=== PATIENT | male | born 1990 | race African-American/Black ===

== ENCOUNTER 2023-07-29 16:44 | Emergency (ER) | payer MEDICAID ==
[~2023-07-29] VITALS: Ht 175.3 cm; Wt 97.0 kg
[2023-07-29 16:53] VITALS: O2SAT 99
[2023-07-29] MEDS ORDERED: ASPIRIN 325MG EC TABLET PO ONE (17:30)
[2023-07-29 20:16] LABS: BASOPHILS % 0.7 % (0.0-2.0); EOSINOPHILS % 0.8 % (0.0-5.0); HEMATOCRIT. 39.3 % (42.0-52.0); HEMOGLOBIN. 13.1 g/dL (14.0-18.0); LYMPHOCYTES % 31.4 % (20.0-50.0); MEAN CORPUSCULAR HEMOGLOBIN 29.3 pg (28.0-32.0); MEAN CORPUSCULAR HGB CONC 33.3 g/dL (31.0-37.0); MEAN CORPUSCULAR VOLUME 88.1 fL (80.0-94.0); MEAN PLATELET VOLUME 7.6 fl (7.4-10.4); MONOCYTES % 10.9 % (2.0-8.0); NEUTROPHILS % 56.2 % (40.0-76.0); PLATELET 349 x1000/uL (130-400); RED BLOOD CELL COUNT 4.46 mill/uL (4.7-6.1); RED CELL DISTRIBUTION WIDTH 14.6 % (11.6-14.6); WHITE BLOOD COUNT 7.3 x1000/uL (4.5-11.0)
[2023-07-29 20:33] LABS: ALANINE AMINOTRANSFERASE 76 IU/L (10-49); ASPARTATE AMINOTRANSFERASE 114 IU/L (<34); BILIRUBIN TOTAL 0.6 mg/dL (0.1-1.0); CALCIUM 8.8 mg/dL (8.7-10.4); CARBON DIOXIDE 24 mEq/L (21-32); CHLORIDE 102 mEq/L (98-107); CREATININE 0.9 mg/dL (0.6-1.3); GLUCOSE 94 mg/dL (70-105); POTASSIUM 3.1 mEq/L (3.5-5.1); PROTEIN TOTAL 7.1 g/dL (6.0-8.3); SODIUM 138 mEq/L (136-145); TROPONIN I HIGH SENSITIVITY 29 ng/L (3.0-53); UREA NITROGEN BLOOD 11 mg/dL (9-23)
[2023-07-29] MEDS ORDERED: DIVALPROEX SODIUM 500MG DR TABLET PO ONE (21:00)
[2023-07-29] MEDS ORDERED: PROPRANOLOL HCL 10MG TABLET PO ONE (21:00)
[2023-07-29] MEDS ORDERED: OLANZAPINE 10MG TABLET PO SCH (21:00)
[2023-07-29] MEDS ORDERED: DIPHENHYDRAMINE 50MG CAPSULE PO ONE (21:00)
[2023-07-30 14:50] VITALS: BP 143/68; PULSE 88; RESP 16; TEMP 98.7
== END 2023-07-30 14:52 | disposition home or self-care (01) ==
LOC: ER 16:44
DX: R53.1 Weakness (principal); F19.90 Other psychoactive substance use, unspecified, uncomplicated; F20.9 Schizophrenia, unspecified; Z13.9 Encounter for screening, unspecified
CPT/HCPCS: 36415; 71045; 80053; 83880; 84484; 85025; 93005; 99285; Q0163